=== PATIENT | female | born 1995 | race Caucasian/White ===

== ENCOUNTER 2016-07-10 03:00 | Emergency (ER) | payer OTHER ==
[~2016-07-10] VITALS: Ht 167.6 cm; Wt 59.1 kg
[2016-07-10] MEDS ORDERED: SPRINTEC 35 MCG1 TAB PO (03:06)
[2016-07-10] MEDS ORDERED: ULTRAM 50MG TAB50 MG PO (03:33)
[2016-07-10 04:09] VITALS: BP 116/67; PULSE 95; TEMP 98.5
== END 2016-07-10 04:15 | disposition home or self-care (01) ==
LOC: COL.ER 03:00
DX: J02.9 Acute pharyngitis, unspecified (principal)